=== PATIENT | female | born 1965 | race Hispanic/Latino ===

== ENCOUNTER 2023-02-17 09:50 | Emergency (ER) | payer MEDICARE ==
[~2023-02-17] VITALS: Ht 160 cm; Wt 61.2 kg
[2023-02-17 09:52] VITALS: BP 121/77; PULSE 70; RESP 20
[2023-02-17] MEDS ORDERED: MORPHINE 4 MG SYG IM ONE (10:30)
[2023-02-17] MEDS ORDERED: ONDANSETRON ODT 4MG TAB SL ONE (10:30)
== END 2023-02-17 12:05 | disposition home or self-care (01) ==
LOC: EDH 09:50
DX: S93.401A Sprain of unspecified ligament of right ankle, initial encounter (principal); E11.9 Type 2 diabetes mellitus without complications; I10 Essential (primary) hypertension; Z88.1 Allergy status to other antibiotic agents; X58.XXXA Exposure to other specified factors, initial encounter; Y93.01 Activity, walking, marching and hiking; Y92.89 Other specified places as the place of occurrence of the external cause; Y99.8 Other external cause status
CPT/HCPCS: 99283; 73610; 96372; J2270